=== PATIENT | male | born 1960 | race African-American/Black ===

== ENCOUNTER 2024-09-29 07:28 | Emergency (ER) | payer MEDICARE, OTHER ==
[~2024-09-29] VITALS: Ht 175.3 cm; Wt 68.1 kg
[2024-09-29 07:56] VITALS: BP 157/109; PULSE 82; RESP 16; TEMP 98.6; O2SAT 98
--- NOTE | 2024-09-29 08:31 | ED.PDOC ---
Back pain HPI HPI Comments This is a pleasant 64-year-old male with a history of asthma and hypertension who presents with a chief complaint of numbness tingling sensation to the bilateral lower extremities. Patient reports his symptoms as burning chronic sensation to the bilateral feet Symptoms started 1 month ago Also requesting medication refill for his HTN and asthma States [place]CP [place] Denies history of chronic steroid use or history of osteoporosis Denies any history of cancer Denies fevers chills night sweats nausea vomiting unintentional weight loss Denies IV drug use history of HIV/TB Denies abdominal "tearing" pain Denies syncope Denies urinary incontinence or urinary changes Denies numbness tingling of the groin or inner thigh Denies previous back procedure or surgery Chief Complaint: Back Pain Time Seen by MD: 07:48 Reviewed Notes: Nurses Notes, Medications, Allergies Allergies: Coded Allergies: Aspirin (Verified Allergy, Unknown, 09/29/24) Penicillins (Verified Allergy, Unknown, 09/29/24) Home Meds Active Scripts Albuterol Sulfate (Albuterol Sulfate Hfa) 108 Mcg/Act Aer, 108 MCG IN Q6HP PRN for 30 Days, #1 AER 1 Refill Prov:LEONARDA NEVAREZ NP 09/29/24 Fluticasone-Salmeterol (Advair Diskus 100-50 Mcg/Dose) 1 Aer Aer, 1 AER IN BID for 30 Days, #1 AER 1 Refill Prov:LEONARDA NEVAREZ [employer] 09/29/24 Benazepril Hcl (Benazepril Hcl) 40 Mg Tab, 1 TAB PO DAILY, #90 TAB 1 Refill Prov:LEONARDA NEVAREZ NP 09/29/24 Amlodipine Besylate (Amlodipine Besylate) 10 Mg Tab, 1 TAB PO DAILY, #90 TAB 1 Refill Prov:LEONARDA NEVAREZ [employer] 09/29/24 Information Source: Patient Mode of Arrival: Ambulatory Past Medical History PAST MEDICAL HISTORY: Denies Family History Family History: Reviewed,noncontributory to illness Social History Smoker: Non-Smoker Alcohol: Denies ETOH Use Drugs: Denies Drug Use All Other Systems: Reviewed and Negative (Per HPI) Physical Exam General Appearance: No Apparent Distress, Normal HEENT: Normal ENT Inspection, Pharynx Normal, TMs Normal Neck: Full Range of Motion, Non-Tender, Normal, Normal Inspection Respiratory: Chest Non-Tender, Lungs Clear, No Accessory Muscle Use, No Respiratory Distress, Normal Breath Sounds Cardiovascular: No Edema, No JVD, No Murmur, No Gallop, Normal Peripheral Pulses, Regular Rate/Rhythm Breast Exam: Deferred Gastrointestinal: No Organomegaly, Non Tender, No Pulsatile Mass, Normal Bowel Sounds, Soft Genitalia: Deferred Pelvic: Deferred Rectal: Deferred Extremities: No calf tenderness, Normal capillary refill, Normal inspection, Normal range of motion, Non-tender, No pedal edema Musculoskeletal : Apperance: Normal Neurologic: Alert, accounting auditor II-XII nml as Tested, No Motor Deficits, Normal Affect, Normal Mood, No Sensory Deficits Cerebellar Function: Normal Reflexes: Normal Skin: Dry, Normal Color, Warm Lymphatic: No Adenopathy Was a procedure done? Was a procedure done?: No Images 1 - No gross abnormality on inspection. No erythema swelling. No open wounds. Dorsalis pedis pulses 2+. Sensation intact Back Pain Differential Dx Differential Diagnosis: Other (Neuropathy, paresthesia, diabetic wound) X-Ray, Labs, Meds, VS Vital Signs Date Time Temp Pulse Resp B/P (MAP) Pulse Ox O2 Delivery O2 Flow Rate FiO2 09/29/24 07:56 98.6 82 16 157/109 (125) 98 98.6 09/29/24 07:56 82 16 98 Room Air 09/29/24 07:35 98.6 82 16 157/104 (121) 98 09/29/24 07:35 82 Lab Test 09/29/24 09:12 09/29/24 07:41 Range/Units White Blood Count 3.7 L 4.4-10.8 10^3/uL Red Blood Count 4.89 4.5-5.90 10^6/uL Hemoglobin 15.6 13.5-17.5 g/dL Hematocrit 46.1 41.0-53.0 % Mean Corpuscular Volume 94.4 80.0-100.0 fL Mean Corpuscular Hemoglobin 32.0 28.0-32.0 pg Mean Corpuscular Hemoglobin Concent 33.9 32.0-36.0 g/dL Red Cell Distribution Width 14.8 H 11.8-14.3 % Platelet Count 250 140-450 10^3/uL Mean Platelet Volume 9.7 6.9-10.8 fL Neutrophils (%) (Auto) 37.0-80.0 % Lymphocytes (%) (Auto) 10.0-50.0 % Monocytes (%) (Auto) 0.0-12.0 % Basophils (%) (Auto) 0.0-2.0 % Neutrophils # (Auto) 1.6-8.6 10 ^3/uL Lymphocytes # (Auto) 0.4-5.4 10 ^3/uL Monocytes # (Auto) 0-1.3 10 ^3/uL Differential Total Cells Counted Pending Neutrophils % (Manual) Pending Band Neutrophils % (Manual) Pending Lymphocytes % (Manual) Pending Monocytes % (Manual) Pending Eosinophils % (Manual) Pending Basophils % (Manual) Pending Metamyelocytes % (manual) Pending Myelocytes % (Manual) Pending Promyelocytes % (Manual) Pending Blast Cells % (Manual) Pending Reactive Lymphocytes Pending Platelet Estimate Pending D-Dimer, Quantitative 0.23 0.0-0.49 mg/L FEU Sodium Level 142 136-145 mmol/L Potassium Level 4.1 3.5-5.1 mmol/L Chloride Level 110 H 98-107 mmol/L Carbon Dioxide Level 27 20-31 mmol/L Anion Gap 5 5-15 Blood Urea Nitrogen 22 9-23 mg/dL Creatinine 1.44 H 0.700-1.30 mg/dL Glomerular Filtration Rate Calc 54 >90 mL/min BUN/Creatinine Ratio 15.3 10.0-20.0 Serum Glucose 85 74-106 mg/dL Calcium Level 9.9 8.7-10.4 mg/dL POC Glucose 91 70-106 mg/dl X-Ray, Labs, Meds, VS Comment This is a pleasant 64-year-old male with a history of asthma and hypertension who presents with a chief complaint of numbness tingling sensation to the bilateral lower extremities. After ROS and physical examination no red flags. Differentials considered but not limited to DVT, DM neuropathy, BLE peripheral edema Labs ordered, neg d dimer, cbc, bmp reassuring Based on shared decision-making patient agreed to symptomatic treatment. Patient is stable for discharge at this time. External notes reviewed. Test results and diagnostic imaging interpreted. Follow-up with PCP in 2 to 3 days Patient verbalized understanding and agreed to treatment plan Vital signs stable, afebrile, no acute distress noted Patient ambulatory with strong steady gait Advised to return precautions for any new or worsening symptoms, return to ER immediately for re-evaluation Patient is aware that the purpose of this visit was for an acute medical emergency requiring emergent stabilization. Chronic conditions, including malignancies have not been ruled out. Patient is instructed to follow up with PCP as directed and discharge instructions for continued care and workup. If unable to arrange follow-up, patient is to return to the emergency department for reassessment. Patient (parent or legal guardian if applicable) was given verbal and written discharge instructions and acknowledges understanding. Time of 1ST Reevaluation: 08:46 Reevaluation 1ST: Improved Patient Education/Counseling: Diagnosis, Treatment Family Education/Counseling: Diagnosis, Treatment Departure 1 Departure Time of Disposition: 10:23 Impression: Primary Impression: Neuropathy Additional Impressions: HTN (hypertension) Qualified Codes: I10 - Essential (primary) hypertension Asthma Qualified Codes: J45.20 - Mild intermittent asthma, uncomplicated CKD (chronic kidney disease), stage III Qualified Codes: N18.31 - Chronic kidney disease, stage 3a Disposition: HOME / SELF CARE / HOMELESS Condition: Stable e-Prescriptions Albuterol Sulfate (Albuterol Sulfate Hfa) 108 Mcg/Act Aer 108 MCG IN Q6HP PRN for 30 Days, #1 AER 1 Refill Prov: LEONARDA NEVAREZ NP 09/29/24 Fluticasone-Salmeterol (Advair Diskus 100-50 Mcg/Dose) 1 Aer Aer 1 AER IN BID for 30 Days, #1 AER 1 Refill Prov: LEONARDA NEVAREZ [employer] 09/29/24 Benazepril Hcl (Benazepril Hcl) 40 Mg Tab 1 TAB PO DAILY, #90 TAB 1 Refill Prov: LEONARDA NEVAREZ [employer] 09/29/24 Amlodipine Besylate (Amlodipine Besylate) 10 Mg Tab 1 TAB PO DAILY, #90 TAB 1 Refill Prov: LEONARDA NEVAREZ [employer] 09/29/24 Critical Care Note Critical Care Time?: No Stability Stability form required: No Heart Score Heart Score: Heart Score Response (Comments) Value History N/A 0 EKG N/A 0 Age N/A 0 Risk Factors N/A 0 Troponin N/A 0 Total 0 LEONARAD NEVAREZ NP Sep 29, 2024 08:31
[2024-09-29 09:28] LABS: Hematocrit 46.1 % (41.0-53.0); Hemoglobin 15.6 g/dL (13.5-17.5); Mean Corpuscular Hgb Conc. 33.9 g/dL (32.0-36.0); Mean Corpuscular Volume 94.4 fL (80.0-100.0); Platelet Count (auto) 250 10^3/uL (140-450); Red Blood Cells 4.89 10^6/uL (4.5-5.90); Red Cell Distribution Width 14.8 % (11.8-14.3); White Blood Cell 3.7 10^3/uL (4.4-10.8)
[2024-09-29 09:33] LABS: Potassium 4.1 mmol/L (3.5-5.1); Sodium 142 mmol/L (136-145)
[2024-09-29 09:34] LABS: Anion Gap 5 (5-15); Carbon Dioxide 27 mmol/L (20-31)
[2024-09-29 09:35] LABS: Calcium 9.9 mg/dL (8.7-10.4); Chloride 110 mmol/L (98-107)
[2024-09-29 09:40] LABS: BUN/Creatinine Ratio 15.3 (10.0-20.0); Band Neutrophils % (manual) 0; Basophils % (manual) 0 (0.0-2.0); Blast Cells 0; Blood Urea Nitrogen 22 mg/dL (9-23); Glucose 85 mg/dL (74-106); Metamyelocytes % 0; Myelocytes % 0; Promyelocytes % 0; Reactive Lymphocytes 0
[2024-09-29] MEDS ORDERED: ALBU108A5 IN (10:06)
[2024-09-29] MEDS ORDERED: FLUT100M IN (10:06)
[2024-09-29] MEDS ORDERED: BENA40TA71 PO (10:06)
[2024-09-29] MEDS ORDERED: AMLO1TAB23 PO (10:06)
[2024-09-29 11:38] LABS: Eosinophils % (manual) 16 (0-7); Lymphocytes % (manual) 36 (10.0-50.0); Monocytes % (manual) 3 (0-12); Platelet Estimate Adequate
== END 2024-09-29 10:33 | disposition home or self-care (01) ==
LOC: ER 07:28
DX: I12.9 Hypertensive chronic kidney disease with stage 1 through stage 4 chronic kidney disease, or unspecified chronic kidney disease (principal); N18.30 Chronic kidney disease, stage 3 unspecified; G62.9 Polyneuropathy, unspecified; J45.909 Unspecified asthma, uncomplicated; Z88.0 Allergy status to penicillin; Z88.6 Allergy status to analgesic agent; Z79.51 Long term (current) use of inhaled steroids; Z79.899 Other long term (current) drug therapy
CPT/HCPCS: 36415; 80048; 82962; 85007; 85027; 85379